=== PATIENT | male | born 1990 | race Caucasian/White ===

== ENCOUNTER 2021-02-04 16:14 | Emergency (ER) | payer BC ==
[~2021-02-04] VITALS: Ht 180.3 cm; Wt 83.9 kg
[2021-02-04 16:16] VITALS: BP 128/76
[2021-02-04] MEDS ORDERED: ATIVAN1 M1 PO (17:04)
== END 2021-02-04 17:09 | disposition home or self-care (01) ==
LOC: ER 16:14
DX: F41.9 Anxiety disorder, unspecified (principal); Z88.1 Allergy status to other antibiotic agents